=== PATIENT | male | born 1965 | race Caucasian/White ===

== ENCOUNTER → 2016-06-30 | Outpatient (CLI) | payer BC ==
[~2016-06-30] MED LIST: ALBU18HF2 ORAL INH; ASPI81TA2 PO; DOCU-168 PO; DULO30CA52 PO; FENT1PAT66 TOP; GABA-338 PO; LEVO112T7 PO; LIDO700A3 TD; LISI1TAB11 PO; NAPR500T6 PO; NITR0.4T39 SL; OXYC-533 PO; TIZA4TAB4 PO
--- NOTE | 2016-06-30 09:46 | DI ---
Indication: ITS.REASON: STENOSIS; RECURRENT HERNIATED DISK PROCEDURE: LUMBAR SPINE 2-3 VIEWS: Encounter: Initial Comparison: December 14, 2015 Findings: Interval surgery with L4-S1 posterior spinal fusion and laminectomies. No evidence of hardware fracture or failure. Vertebral body heights are maintained. Moderate disk space narrowing at L5-S1 with mild disk space loss at L4-L5, similar to the comparison study. Impression: Interval lumbosacral fusion. .
== END ==
LOC: IMA 08:52
PROVIDERS: ATTEND Neurological Surgery
DX: M51.37 Other intervertebral disc degeneration, lumbosacral region (principal); Z98.1 Arthrodesis status